=== PATIENT | male | born 1965 | race Caucasian/White ===

== ENCOUNTER 2016-08-15 14:08 | Inpatient (IN) | payer MEDICARE, OTHER ==
--- NOTE | ~2016-08-15 | HP ---
Unit #: [id number] #: [id number] Patient: SHEILA KWOK [id number] [address] [address] [id number] I MR#: [id number] NAME: SHEILA KWOK ROOM: 560 Age: 51 Sex: M Admission Date: 08/15/2016 : 1965 Attending Physician: Jeff Reynoso M.D. Primary Care Physician: Kevin Barrett M.D. HISTORY AND PHYSICAL CHIEF COMPLAINT Nausea. HISTORY OF PRESENT ILLNESS The patient is a 51-year-old male who presented to [facility] emergency department at the behest of his primary care provider secondary to a presumed pneumonia. The patient states that he has had about 4 days of progressive nausea and malaise. It culminated today in a temperature of 101. He has been increasingly drowsy and had difficulty staying awake. Denies any pain. Denies shortness of breath or chest pain. The patient denies diarrhea. He also states that he feels his symptoms began to ramp up after a recent left-sided tunneled cath replacement. PAST MEDICAL HISTORY 1. Coronary artery disease. 2. CVA. 3. Blindness. 4. Clotting disorder. 5. Diabetes. 6. Hypothyroidism. 7. Esophageal ulcers. 8. End-stage renal disease. 9. Bilateral qtsoq-nyz-whxn amputations. 10. Anxiety and depression. HOME MEDICATIONS 1. Hydroxyzine 50 mg p.o. q.6-8 h. 2. Metoprolol succinate 25 mg p.o. daily. 3. Neurontin 200 mg p.o. before dialysis. 4. Cymbalta 30 mg p.o. daily. 5. Paroxetine 40 mg p.o. daily. 6. Coumadin 5 mg p.o. daily. 7. Lipitor 80 mg p.o. daily. 8. Humalog 50/50 per sliding scale insulin. 9. Levemir 18 units b.i.d. 10. Synthroid 300 mcg daily. 11. Nitroglycerin as needed. 12. Timolol eye drops. 13. Xanax 1 mg p.o. daily as needed. 14. MVI daily. 15. Artificial Tears as needed. ALLERGIES Unit #: [id number] #: [id number] Patient: SHEILA KWOK. SOCIAL HISTORY There is no alcohol, tobacco or illicit drug use. Patient lives with family. FAMILY HISTORY Reviewed and noncontributory. REVIEW OF SYSTEMS A 10-point review of systems was obtained and negative except as per HPI. PHYSICAL EXAMINATION VITAL SIGNS: Temperature 101.0, pulse 108, blood pressure 104/35. GENERAL: This is a 51-year-old male in no acute distress who appears stated age. HEENT: Pupils equally round. Extraocular movements are intact. Mucous membranes are dry. NECK: Supple. No JVD, no lymphadenopathy. HEART: Regular rate and rhythm. 3/6 systolic ejection murmur. No gallops or rubs. LUNGS: Clear to auscultation bilaterally. ABDOMEN: Nontender, nondistended. Positive bowel sounds. EXTREMITIES: Bilateral BKA. No upper extremity swelling, cyanosis, or clubbing. PSYCHIATRIC: Alert and oriented x3. Affect is appropriate. NEUROLOGIC: Cranial nerves II-XII are intact grossly. The patient moves bilateral upper extremities equally and with purpose. SKIN: No rashes, bruises, or ulcers. MUSCULOSKELETAL: No muscle or joint pain, no muscle or joint swelling. DIAGNOSTIC STUDIES LABORATORY: Glucose 252, creatinine 4.5, sodium 125, chloride 93, bicarb 20. Lactate is 2. Hemoglobin 10.5. IMAGING: Chest x-ray shows no acute abnormality. ASSESSMENT AND PLAN 1. Sepsis. At this point, concern for tunneled cath source. The patient has been started on vancomycin and Zosyn. 2. End-stage renal disease. Consult has been placed to the patient's director graphics. 3. Diabetes. The patient has been started on low-dose sliding scale insulin. 4. Hypothyroidism. Continue home medications. 5. Prophylaxis. The patient is started on Lovenox. Dictated by Jeff Reynoso M.D. RACHEL/jhonny Unit #: [id number] #: [id number] Patient: SHEILA KWOK TD: 08/15/2016 21:15 JOB #: [id number] HISTORY AND PHYSICAL Page 1 of 1 X Jeff Reynoso MD X HISTORY AND PHYSICAL
--- NOTE | ~2016-08-15 | CR72 ---
[facility] A Service of [facility] & [facility] RADIOLOGY TEXT RESULTS PATIENT: SHEILA KWOK LOCATION: B 560-01 : [birth year] UNIT #: [id number] AGE: [address]: Edita Stroud MD SEX: M ORDER DR: [id number] [facility] [address] [facility]. [place], [place] [address] [id number] I MR#: [id number] Acc #: [id number] NAME: SHEILA KWOK : 1965 SEX: M STUDY DATE/TIME: 08/15/2016 14:45 UNIT: [facility] ROOM: [facility] STUDY DESCRIPTION: CR Chest Single View Portable Attending Physician: Jeff Reynoso M.D. Ordering Physician: Jorge Luis Ventura M.D. Primary Care Physician: Kevin Barrett M.D. MEDICAL IMAGING REPORT This report is preliminary unless electronic signature is present EXAM Single view of the chest dated 08/15/2016. COMPARISON Chest, 2 views dated 08/15/2016. HISTORY Cough, fever, shortness of air for one day. FINDINGS Single view of the chest was obtained. Left IJ approach dual-lumen catheter is noted with the tip in the region of the SVC. Vascular stents are noted in the region of the right subclavian, axillary vessels. Correlate with the history. No acute cardiopulmonary disease. Lungs are well-aerated. Heart and mediastinum are of stable size. There is mild prominence of the superior mediastinum in the right paraspinal region, but it is stable when compared to the prior CT chest from 08/15/2016, with a prominent right azygous vein is noted extending from anterior to posterior aspect crossing the prominence. IMPRESSION 1. No acute cardiopulmonary disease. 2. Left IJ approach dual-lumen catheter tip is in the region of the SVC. 3. Vascular stents are noted in the region of the right subclavian and right axillary veins. Dictated by... Edward Wesley M.D. THIS IS AN ELECTRONICALLY VERIFIED REPORT [facility] A Service of [facility] RADIOLOGY TEXT RESULTS PATIENT: SHEILA KWOK LOCATION: C5B 560-01 : [birth year] UNIT #: [id number] AGE: [address]: Edita Stroud MD SEX: M ORDER DR: Edward Wesley M.D. at 08/16/2016 11:44 AM CPR/jt TD: 08/15/2016 20:16 JOB #: [id number] MEDICAL IMAGING REPORT Page 1 of 1 COPY
--- NOTE | ~2016-08-15 | EKG ---
PATIENT: SHEILA KWOK UNIT #: [id number] Ventricular Rate: 102 BPM Atrial Rate: 102 BPM P-R Interval: 174 ms QRS Duration: 66 ms Q-T Interval: 346 ms QTC Calculation(Bezet): 450 ms P [place]: 52 degrees Calculated R [place]: -4 degrees Calculated T [place]: 82 degrees Diagnosis Line: Sinus tachycardia Diagnosis Line: Low voltage QRS Diagnosis Line: Cannot rule out Anteroseptal infarct , age Diagnosis Line: undetermined Diagnosis Line: Abnormal ECG Diagnosis Line: No previous ECGs available Diagnosis Line: Confirmed by EDILMA MIR MD ([id number]) on 08/15/2016 Diagnosis Line: 8:42:58 PM INTERPRETING MD: ADEOLA COBOS
--- NOTE | ~2016-08-15 | DS ---
Unit #: [id number] #: [id number] Patient: SHEILA KWOK [id number] [address] [place], [place] [address] [id number] I MR#: [id number] NAME: SHEILA KWOK ROOM: 560 Age: 51 Sex: M Admission Date: 08/15/2016 : 1965 Discharge Date: 08/20/2016 Attending Physician: Jeff Reynoso M.D. Primary Care Physician: Kevin Barrett M.D. DISCHARGE SUMMARY DISCHARGE DIAGNOSES 1. Line sepsis. 2. End stage renal disease. 3. Hypotension. 4. Coronary artery disease. 5. Moderate pulmonary hypertension. HOSPITAL COURSE Patient is a 51-year-old male admitted to [facility] on 08/15/16 secondary to sepsis. The patient had initially presented from his primary care provider's office secondary to some concern for pneumonia and sepsis. However, the patient's chest x-ray proved normal in the ED and interview of the family revealed that symptoms seemed to have begun shortly after replacement of the left-sided tunneled cath. Patient was started on Zosyn and vancomycin. Started on sepsis protocol and patient's lactic acid was noted to be 1. The patient's blood pressures were all initially well within normal ranges; however, the patient did become hypotensive with a blood pressure of 87/42 on August 18. This was noted to be associated with dialysis and felt not to be secondary to the patient's infection. Patient was started briefly on dopamine, which has now been weaned off. The source of the sepsis at this time is felt to be secondary to his line. The patient had 2 of 2 blood cultures from March 17 that grew coagulase negative staph. Patient's Zosyn was discontinued and he has continued on vancomycin dosed after dialysis. The plan for infectious disease is to continue dosing the vancomycin through the tunneled catheter until 08/30/16 in hopes of sterilizing the catheter and rendering it viable for continued use. At this time, patient's dopamine has been discontinued. His blood pressures are appropriate. Patient is being discharged home to continue IV antibiotics and dialysis per his normal schedule. DISCHARGE MEDICATIONS 1. Coumadin 5 mg daily. 2. Neurontin 200 mg p.o. daily. 3. Cymbalta 30 mg daily. 4. Paxil 40 mg daily. 5. Lipitor 80 mg daily. 6. Hydroxyzine 50 mg p.o. q.6-8 hours as needed for itching. 7. Xanax 1 mg p.o. daily p.r.n. anxiety. 8. Metoprolol succinate 25 mg p.o. daily. Unit #: [id number] #: [id number] Patient: SHEILA KWOK 9. Timoptic eyedrops 1 drop each eye twice a day. 10. Humalog 50/50 per sliding scale. 11. Levemir 18 units subcu. b.i.d. 12. Synthroid 300 mcg daily. 13. Rectiv 0.5 inch applied topically as needed q.8 hours. 14. Virt-Caps softgel one daily. 15. Vancomycin with dialysis until 08/30. FOLLOWUP As mentioned above, the patient should follow up with his regularly scheduled dialysis. He should see his primary care provider within one week. Dictated by... Jeff Reynoso M.D. RACHEL/shannon TD: 08/21/2016 10:09 JOB #: [id number] DISCHARGE SUMMARY Page 1 of 1 X Jeff Reynoso MD X DISCHARGE SUMMARY
--- NOTE | ~2016-08-15 | CO ---
Unit #: [id number] #: [id number] Patient: SHEILA KWOK [id number] [address] [address] [id number] I MR#: [id number] NAME: SHEILA KWOK ROOM: 560 Age: 51 Sex: M Admission Date: 08/15/2016 : 1965 Attending Physician: Edita Stroud M.D. Primary Care Physician: Kevin Barrett M.D. Consultation Date: 08/17/2016 CONSULTATION REPORT REASON FOR CONSULTATION Positive blood cultures and bacteremia. HISTORY OF PRESENT ILLNESS This is a 51-year-old male who is somewhat a poor historian. The patient is alone in the room, without family at the bedside. Chart has also been reviewed. The patient has a history of chronic kidney disease on dialysis for several years and has had multiple dialysis access placements in the past that have failed secondary to a clotting disorder and not infection. The patient reports that within the last two weeks he had a new tunnelled line placed in his left chest and the past this happened in his arms and in his legs. The patient reports at home he was having fever and also it appears per the history and physical that he was having some nausea and malaise. The patient also with a fever spike of 101 was brought to the emergency room per the advisement of his primary care provider. The patient in the emergency room and to myself denied shortness of breath, nausea, vomiting and diarrhea and reports overall feeling better since admission. Workup showed fever of 101 degrees Fahrenheit as well as two positive blood cultures for Gram positive cocci, one of which has speciated to coag negative staphylococcus. The patient was given vancomycin and Zosyn and infectious disease was asked to evaluate for further management. PAST MEDICAL HISTORY 1. Coronary artery disease. 2. CVA 3. Blindness. 4. Clotting disorder 5. Diabetes. 6. Hypothyroidism. 7. Esophageal ulcers. 8. Endstage renal disease. 9. Bilateral wxzsx-qty-htoz amputations. 10. Anxiety. 11. Depression. SOCIAL HISTORY No alcohol, tobacco or drug use. He lives with others [facility]. CURRENT MEDICATIONS 1. Vancomycin. Unit #: [id number] #: [id number] Patient: SHEILA KWOK 2. Zosyn. For further medications please refer to the patient's MAR. REVIEW OF SYSTEMS The patient denies any current fever, chills or sweats. He reports feeling better. He denies any shortness of breath, chest pain, cough, nausea, vomiting, diarrhea, nonhealing wounds or pain at his tunnelled site. PHYSICAL EXAMINATION GENERAL: This is a no apparent distress male who is resting in the bed comfortably. VITALS: Temperature 97.9 with a t-max of 101, pulse 74, blood pressure 96/40, respiratory rate 17. NECK: Supple. LUNGS: Clear to auscultation bilaterally with no wheezes or rhonchi noted. HEART: S1 and S2. Regular rate and rhythm. ABDOMEN: Positive bowel sounds. Soft and nontender. EXTREMITIES: Healed incisions on his bilateral ubgpu-voq-ylem amputations. He has a left chest tunnelled catheter in place without any evidence or drainage or erythema or tenderness. DIAGNOSTIC STUDIES IMAGING: On 08/15/2016, chest x-ray shows no acute cardiopulmonary disease. LABORATORY: BUN 28, creatinine 4.6, sodium 132, potassium 3.6, chloride 96, CO2 25, bilirubin 0.6, AST 24, ALT 25, alkaline phosphatase 168. Lactic acid 2.0 on admission and improved to 1.4. Procalcitonin 2.98. White blood cell count 5.4, hemoglobin 9.9, hematocrit 30.5, platelets 163. Microbiology, blood cultures 08/15/2016 show (1) with coag negative staph and one of two gram positive cocci. ASSESSMENT/PLAN This is a 51-year-old diabetic male with chronic kidney disease, with multiple dialysis accesses in the past secondary to failure from a clotting disorder. The patient recently within the last few weeks has had a tunnelled line placed in his left chest. The patient now presents with fever and malaise and was found to have gram positive cocci bacteremia, one of which is showing coag negative staphylococcus. At this time, due to the patient's vascular access difficulties, and potentially virulent bacteria, may be able to salvage the line. Would recommend at this time to continue to follow up on the final identification of all of the blood cultures. Will repeat blood cultures times two 30 minutes apart. Will discontinue Zosyn and continue pulse dosing vancomycin per the pharmacy. Will check a CBC in the a.m. The patient overall reports that he has been feeling better since hospitalization and we will continue to follow along. Thank you for allowing us to participate in the care of this patient. Further recommendations to follow pending the patient's clinical course. Dictated by... Camille Johnson A.P.R.N. for Jorge Piper M.D. Unit #: [id number] #: [id number] Patient: SHEILA KWOK SLS/gz TD: 08/17/2016 10:47 JOB #: [id number] CONSULTATION REPORT Page 1 of 1 X X CONSULTATION REPORT
--- NOTE | ~2016-08-15 | BMI ---
[facility] Nutrition Therapy DATE: 08/16/16 Patient: SHEILA KWOK Physician: LENNOX Address: [address] Room/Bed: [address] [place] [address], Zip: [place] [address] Admit Date: 08/15/16 Date of : [birth year] Height: 4 0 Weight: 193 87.54 HIGH BMI NOTE: DX: 51 y/o male admitted for fever, PNA? ANTHROPOMETRICS: ht: 4'0" wt: 192# (87 kg) BMI 58 DIET: 1. 2g Na+ INTERVENTION: 1. 2g Na+ diet RECOMMENDATIONS: 1. Recommend adding healthy heart to current 2g Na+ diet in order to promote gradual weight loss towards a healthy BMI. RD will f/u per protocol. Respectfully, GATO ALONZO, medical assistant internal medicine Srikanth Mills MS, RD, LD Food and Nutritional Services [facility] [place] [facility] cc: client file
--- NOTE | ~2016-08-15 | CO ---
Unit #: [id number] #: [id number] Patient: SHEILA KWOK [id number] [address] [address] [id number] I MR#: [id number] NAME: SHEILA KWOK ROOM: 560 Age: 51 Sex: M Admission Date: 08/15/2016 : 1965 Attending Physician: Edita Stroud M.D. Primary Care Physician: Kevin Barrett M.D. Consultation Date: 08/18/2016 CONSULTATION REPORT REASON FOR CONSULTATION Hypotension. HISTORY OF PRESENT ILLNESS The patient is a 51-year-old man known to Dr. Diaz. On October 23, 2011, patient underwent a cardiac catheterization. Patient underwent successful angioplasty with stent insertion to the mid left anterior descending 90-95% stenosis reduced to no residual stenosis with a 2.25 x 22 mm drug-eluting Resolute stent postdilated to 2.45 mm and proximal left anterior descending 70% stenosis reduced to no residual stenosis with a 2.5 x 14 mm Resolute stent postdilated to 2.71 mm. Previously in September 2011, patient underwent PCI and stent to the mid and proximal RCA. At that time, he had moderate disease in the circumflex, ramus, and ramus branches. In March 2015, patient was admitted to the hospital after a cardiac arrest during dialysis. At that time, patient and family declined to have a cardiac cath. His last echo that I can find is from 2013 which showed an EF of 55%, mild MR, and mild to moderate TR. Patient's additional past medical history includes hypertension, hyperlipidemia, diabetes with retinopathy and he is legally blind, peripheral vascular disease, status post bilateral BKAs, and failed kidney transplant x2. He does have end-stage renal disease and is on hemodialysis. In 2004, patient had a CVA or a TIA. 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 Additionally, he has rheumatoid arthritis, hypothyroidism, hypoparathyroidism, and is wheelchair bound. The patient reports that he recently had a left-sided tunneled catheter placed. The patient presented to the emergency department with complaints of fever, nausea, and malaise x4 days. He denies any chest pain. He does endorse a cough. There is no shortness of breath. Again, he states that he recently had a left-sided tunneled catheter placed. Patient reports that his temperature got as high as 100.1. Patient was admitted to the hospital for sepsis. On August 15, blood cultures x2 showed coagulase-negative staphylococcus bacteremia. Infectious Disease has consulted, and they are managing the patient's antibiotics. Cardiology was consulted for the hypotension. His telemetry shows sinus rhythm, and his blood pressures have been running 80s to 90s over 50s to 60s. At this point in time, he has received 2.5 liters of normal saline. PAST MEDICAL HISTORY 1. Catheterization in September 2011 with PCI and stent to the mid and proximal RCA and moderate disease in the circumflex, ramus, and ramus Unit #: [id number] #: [id number] Patient: SHEILA KWOK. 2. Catheterization in October 2011 with PCI and stent to the mid to proximal LAD. 3. Echocardiogram in 2013 with ejection fraction of 55%. 4. Hypertension. 5. Hyperlipidemia. 6. Cardiac arrest in March 2015 during hemodialysis. Cardiac catheterization was declined at that time. 7. Diabetes with retinopathy. 8. Legally blind. 9. Peripheral vascular disease, status post bilateral BKAs. 10. Failed kidney transplant x2. 11. Transient ischemic attack. 12. Cerebrovascular accident/TIA in 2004. 13. 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 14. Rheumatoid arthritis. 15. Hypothyroidism. 16. Hypoparathyroidism. 17. Recent left tunneled catheter placement. 18. Multiple AV shunts and fistulas. 19. Parathyroidectomy. 20. Cholecystectomy. 21. Cataract extraction. 22. Cystoscopy. ALLERGIES [place]. HOME MEDICATIONS 1. Hydroxyzine 50 mg p.o. q.6-8 hours p.r.n. 2. Metoprolol succinate 25 mg p.o. daily. 3. Neurontin 200 mg p.o. before dialysis. 4. Cymbalta 30 mg p.o. daily. 5. Paroxetine 40 mg p.o. daily. 6. Coumadin 5 mg p.o. daily. 7. Lipitor 80 mg p.o. daily. 8. Humalog 50/50 per sliding scale insulin. 9. Levemir 18 units subcutaneous b.i.d. 10. Synthroid 300 mcg p.o. daily. 11. Nitroglycerin 0.4 mg sublingual q.5 minutes x3 p.r.n. chest pain. 12. Timolol eyedrops. 13. Xanax 1 mg p.o. daily p.r.n. 14. Multivitamin 1 tab p.o. daily. 15. Artificial Tears. FAMILY HISTORY Negative for coronary artery disease. SOCIAL HISTORY Patient lives with his parents and a son. He is wheelchair bound. His parents and family do assist him with his care. He quit smoking in November 2013. He does have a remote history of marijuana use. He does endorse that he will occasionally have a beer. REVIEW OF SYSTEMS A 10-point review of systems has been done and is considered otherwise negative unless indicated in the History of Present Illness. Unit #: [id number] #: [id number] Patient: SHEILA KWOK PHYSICAL EXAMINATION GENERAL: Patient is awake, alert, and in no acute distress. CURRENT VITAL SIGNS: Temperature 97.9, heart rate 81, respirations 18, blood pressure 89/46, and he is oxygenating 97%. HEENT: Head is atraumatic and normocephalic. Pupils are equal, round, and reactive. Extraocular movements are intact. No drainage from ears or nares. NECK: Supple. Trachea is midline. No lymphadenopathy or thyromegaly is appreciated. Normal carotid upstrokes. CHEST: Lungs are diminished bilaterally. No wheezes, rales, or rhonchi. He does have a left upper chest tunneled catheter. CARDIOVASCULAR: S1 and S2, regular rate and rhythm. No murmurs, rubs, or gallops are appreciated. ABDOMEN: Soft, nontender, and nondistended. Bowel sounds are positive in all four quadrants. SKIN: Appears to be warm, dry, and intact. EXTREMITIES: No clubbing or cyanosis. Patient has bilateral jidjt-koo-hzns amputations. NEUROLOGIC: Patient is alert and oriented x3. He is pleasant and conversant. Cranial nerves II-XII appear to be intact. DIAGNOSTIC STUDIES LABORATORY: White blood cells 7.1, hemoglobin 10, hematocrit 31.2, and platelets 167,000. Sodium 130, potassium 4.3, chloride 97, CO2 of 22, glucose 40, BUN 42, and creatinine 5.2. CARDIOLOGY: Telemetry monitoring shows sinus rhythm in the 70s to 80s. ASSESSMENT 1. Sepsis. 2. Volume depletion. 3. Stable angina, status post percutaneous coronary intervention to the left anterior descending and right coronary artery. 4. Ejection fraction of 60%. 5. Mild to moderate pulmonary hypertension. 6. Left circumflex 95% (1) . 7. Chronic kidney disease, on hemodialysis. 8. Peripheral arterial disease, status post xxaqr-mkx-jthu amputation. 9. Hypotension. 10. Bacteremia. PLAN At this time, will check a BMP, magnesium, and EKG in the morning. The patient will be started on normal saline at 150 mL/hour x6 hours and will decrease down to 100 mL/hour. Dopamine at 5 mcg/kg/min will be started. Do not titrate. Dictated by... Maria De Jesus Reynoso A.P.R.N. for Garcia Ro M.D. AM/am TD: 08/18/2016 16:37 JOB #: [id number] Unit #: [id number] #: [id number] Patient: SHEILA KWOK CONSULTATION REPORT Page 1 of 1 X Maria De Jesus Reynoso APRN X CONSULTATION REPORT
--- NOTE | ~2016-08-15 | EKG ---
PATIENT: SHEILA KWOK UNIT #: [id number] Ventricular Rate: 87 BPM Atrial Rate: 87 BPM P-R Interval: 194 ms QRS Duration: 64 ms Q-T Interval: 370 ms QTC Calculation(Bezet): 445 ms P [place]: 51 degrees Calculated R [place]: 20 degrees Calculated T [place]: 59 degrees Diagnosis Line: Normal sinus rhythm Diagnosis Line: Low voltage QRS Diagnosis Line: Borderline ECG Diagnosis Line: When compared with ECG of 15-AUG-2016 14:35, Diagnosis Line: Minimal criteria for Anteroseptal infarct are no Diagnosis Line: longer Present Diagnosis Line: Confirmed by EDILMA MIR MD ([id number]) on 08/21/2016 Diagnosis Line: 2:54:21 PM INTERPRETING MD: ADEOLA COBOS
[~2016-08-15 14:08] MED LIST: ACETAMINOPHEN PO; ALPHAGAN P10 ML OP; ALPRAZOLAM PO; ALPRAZOLAM0.25 MG PO; AMBIEN PO; AMITRYPTYLINE PO; ANUSOL-HC SUPP25 M1 PR; ASPIRIN ENTERI325 M1 PO; ASPIRIN81 M1 PO; ASPIRIN81 M2 PO; ASPIRINEC PO; ATIVAN; ATIVAN PO; BACTROBAN22 GM TP; BAYER ASPIRIN325 M1 PO; BENADRYL PO; CHEWABLE ASPIRI81 MG PO; COLACE PO; COLACE50 MG PO; COUMADIN PO; COUMADIN2.5 MG PO; COUMADIN5 MG PO; COUMADIN7.5 MG PO; DARVOCET-N 1001 TAB PO; DOCU SOFT100 M1 PO; DOCUSATE SODIU100 MG PO; DORZOLAMIDE HCL10 M1 OU; EFFIENT10 MG PO; FERRO-TIME325 MG PO; FERROUS SULFATE PO; FLEXERIL10 MG PO; FLORINEF0.1 M1 PO; GABAPENTIN300 M2 PO; GABAPENTIN300 MG PO; HEPARIN INJ; HI CAL PO; HUMALOG100 U/ML; HUMALOG100 U/ML SUBQ; HUMULIN R100 U/ML; HYDROCODON-ACE1 EAC5 PO; IRON325 ( 65 ) PO; KLONOPIN PO; LEVEMIR SQ; LEVEMIR SUBQ; LEVEMIR100 U/ML SUBQ; LEVEMIR100 UNITS/ SUBQ; LEVOTHYROXINE175 MCG PO; LEVOXYL175 MC1 PO; LIPITOR PO; LIPITOR20 MG PO; LOPRESSOR PO; LORAZEPAM1 MG PO; METHADONE HCL10 MG PO; METOPROLOL TAR25 MG PO; MIRAPEX PO; MIRAPEX0.25 MG PO; NEPHROCAPS CAPSU1 MG PO; NEURONTIN100 MG PO; NEURONTIN300 MG PO; NEXIUM PO; NEXIUM20 MG PO; NITROGLYCERIN0.4 MG SL; NITROGLYGERIN0.4 MG SL; NITROSTAT0.4 MG SL; NOVOLOG100 U/ML SUBQ; NOVOLOG100 UNITS/ SUBQ; OMEPRAZOLE40 MG PO; OMNICEF300 M1 PO; PAROXETINE HCL40 M1 PO; PAROXETINE HCL40 MG PO; PAXIL PO; PAXIL40 MG PO; PLAVIX PO; PROCRIT4000 U/ML IJ; PROTONIX PO; REGLAN PO; RENAL SOFTGEL1 MG PO; RENAL TAB PO; SIMVASTATIN10 MG PO; SIMVASTATIN40 MG PO; SYNTHROID PO; SYNTHROID0.15 MG PO; SYNTHROID175 MCG PO; TIMOPTIC 0.5% OP5 M2 OU; TIMOPTIC2.5 ML OP; TIMOPTIC2.5 ML OU; TRUSOPT5 ML OP; TRUSOPT5 ML OU; TUMS500 MG PO; WARFARIN SODIU2.5 M1 PO; ZITHROMAX PO; ZOLPIDEM TARTRAT5 MG PO
[2016-08-15 14:41] LABS: BASOPHIL% 0.5 % (0-2.5); EOSINOPHIL% 0.5 % (0.0-7.0); HEMATOCRIT 32.4 % (38.0-50.0); HEMOGLOBIN 10.5 gm/dL (13.0-16.0); LYMPHOCYTE# 0.4 X10e3 (1.0-3.5); LYMPHOCYTE% 5.1 % (17.0-45.0); MEAN CELL VOLUME 95.9 FL (83-96); MEAN CORPUSCULAR HGB CONC 32.3 g/dL (30-36); MEAN PLATELET VOLUME 7.6 FL (6.5-11.5); MONOCYTE# 0.4 X10e3 (0-1.0); MONOCYTE% 5.9 % (3.0-12.0); NEUTROPHIL# 6.6 X10e3 (1.5-7.1); PLATELET COUNT 193 X10e3 (140-420); RED BLOOD COUNT 3.37 X10e (3.90-5.60); RED CELL DISTRIBUTION WIDTH 16.8 % (11.0-15.5); WHITE BLOOD COUNT 7.5 X10e3 (4.0-10.5)
[2016-08-15] MEDS ORDERED: PATIENT'S PHARMACY (14:48)
[2016-08-15] MEDS ORDERED: ARTIFICIAL TEAR15 M9 OU (14:49)
[2016-08-15] MEDS ORDERED: RECTIV30 GM PR (14:50)
[2016-08-15] MEDS ORDERED: VIRT-CAPS SOFTGE1 MG PO (14:50)
[2016-08-15] MEDS ORDERED: XANAX1 MG PO (14:50)
[2016-08-15] MEDS ORDERED: TIMOPTIC 0.5% OP5 M1 OU (14:50)
[2016-08-15] MEDS ORDERED: SYNTHROID300 MCG PO (14:51)
[2016-08-15] MEDS ORDERED: LIPITOR80 MG PO (14:52)
[2016-08-15] MEDS ORDERED: HUMALOG MI100 UNIT/6 (14:52)
[2016-08-15] MEDS ORDERED: LEVEMIR SUBQ (14:52)
[2016-08-15] MEDS ORDERED: COUMADIN5 MG PO (14:52)
[2016-08-15] MEDS ORDERED: CYMBALTA30 M1 PO (14:53)
[2016-08-15] MEDS ORDERED: NEURONTIN100 MG PO (14:53)
[2016-08-15] MEDS ORDERED: METOPROLOL SUCC25 MG PO (14:53)
[2016-08-15] MEDS ORDERED: PAROXETINE HCL40 M1 PO (14:53)
[2016-08-15 14:54] LABS: DIFF IND NO
[2016-08-15] MEDS ORDERED: HYDROXYZINE HCL50 MG PO (14:54)
[2016-08-15 14:56] LABS: INR 2.5; PARTIAL THROMBOPLASTIN TIME 48.3 SECONDS (23.5-31.3); PROTHROMBIN TIME (PATIENT) 27.7 SECONDS (10.0-11.7)
[2016-08-15 15:06] LABS: ALBUMIN SERUM 3.1 g/dL (3.5-5.0); BILIRUBIN, DIRECT 0.1 mg/dL (0.0-0.2); BILIRUBIN,INDIRECT 0.6 mg/dL (0.0-0.9); BILIRUBIN,TOTAL 0.7 mg/dL (0.2-2.0); BUN/CREATININE RATIO 7.33; CALCIUM SERUM 8.2 mg/dL (8.4-10.2); CREATININE SERUM 4.5 mg/dL (0.6-1.4); GLOM FILT RATE Estimated 13.9 mL/min (>60); POTASSIUM 3.7 mmol/L (3.5-5.1); PROTEIN TOTAL SERUM 7.4 g/dL (6.0-8.3)
[2016-08-15 16:58] LABS: POC - CKMB <1.0 ng/mL (0.0-7.9); POC - TROPONIN <0.05 ng/mL (<=0.05)
[2016-08-16 10:39] LABS: HEMATOCRIT 30.2 % (38.0-50.0); HEMOGLOBIN 9.8 gm/dL (13.0-16.0); MEAN CELL VOLUME 95.8 FL (83-96); MEAN CORPUSCULAR HEMOGLOBIN 31.2 PG (28-34); MEAN CORPUSCULAR HGB CONC 32.5 g/dL (30-36); MEAN PLATELET VOLUME 7.9 FL (6.5-11.5); RED BLOOD COUNT 3.15 X10e (3.90-5.60); RED CELL DISTRIBUTION WIDTH 17.1 % (11.0-15.5); WHITE BLOOD COUNT 6.5 X10e3 (4.0-10.5)
[2016-08-16 11:21] LABS: ALBUMIN SERUM 2.8 g/dL (3.5-5.0); BILIRUBIN,TOTAL 0.6 mg/dL (0.2-2.0); BUN/CREATININE RATIO 7.37; CALCIUM SERUM 8.1 mg/dL (8.4-10.2); CREATININE SERUM 6.1 mg/dL (0.6-1.4); GLOM FILT RATE Estimated 9.6 mL/min (>60); POTASSIUM 4.3 mmol/L (3.5-5.1); PROTEIN TOTAL SERUM 7.2 g/dL (6.0-8.3)
[2016-08-17 06:46] LABS: HEMATOCRIT 30.5 % (38.0-50.0); HEMOGLOBIN 9.9 gm/dL (13.0-16.0); MEAN CELL VOLUME 95.6 FL (83-96); MEAN CORPUSCULAR HEMOGLOBIN 31.1 PG (28-34); MEAN CORPUSCULAR HGB CONC 32.6 g/dL (30-36); MEAN PLATELET VOLUME 8.1 FL (6.5-11.5); RED BLOOD COUNT 3.19 X10e (3.90-5.60); WHITE BLOOD COUNT 5.4 X10e3 (4.0-10.5)
[2016-08-17 07:04] LABS: BUN/CREATININE RATIO 6.08; CALCIUM SERUM 7.8 mg/dL (8.4-10.2); CREATININE SERUM 4.6 mg/dL (0.6-1.4); GLOM FILT RATE Estimated 13.5 mL/min (>60); POTASSIUM 3.6 mmol/L (3.5-5.1)
[2016-08-18 06:42] LABS: HEMATOCRIT 31.2 % (38.0-50.0); MEAN CELL VOLUME 96.3 FL (83-96); MEAN CORPUSCULAR HEMOGLOBIN 30.8 PG (28-34); MEAN PLATELET VOLUME 8.4 FL (6.5-11.5); RED BLOOD COUNT 3.24 X10e (3.90-5.60); RED CELL DISTRIBUTION WIDTH 17.9 % (11.0-15.5); WHITE BLOOD COUNT 7.1 X10e3 (4.0-10.5)
[2016-08-18 07:05] LABS: BUN/CREATININE RATIO 8.07; CALCIUM SERUM 7.4 mg/dL (8.4-10.2); CREATININE SERUM 5.2 mg/dL (0.6-1.4); GLOM FILT RATE Estimated 11.7 mL/min (>60); POTASSIUM 4.3 mmol/L (3.5-5.1)
[2016-08-19 07:34] LABS: HEMATOCRIT 31.5 % (38.0-50.0); HEMOGLOBIN 10.2 gm/dL (13.0-16.0); MEAN CELL VOLUME 95.3 FL (83-96); MEAN CORPUSCULAR HEMOGLOBIN 30.8 PG (28-34); MEAN CORPUSCULAR HGB CONC 32.3 g/dL (30-36); MEAN PLATELET VOLUME 7.8 FL (6.5-11.5); RED BLOOD COUNT 3.3 X10e (3.90-5.60); RED CELL DISTRIBUTION WIDTH 17.7 % (11.0-15.5); WHITE BLOOD COUNT 7.8 X10e3 (4.0-10.5)
[2016-08-19 07:56] LABS: BUN/CREATININE RATIO 7.93; CALCIUM SERUM 7.7 mg/dL (8.4-10.2); CREATININE SERUM 6.3 mg/dL (0.6-1.4); GLOM FILT RATE Estimated 9.2 mL/min (>60); MAGNESIUM 2.1 mg/dL (1.6-3.0); POTASSIUM 4.7 mmol/L (3.5-5.1)
[2016-08-20 05:45] LABS: HEMATOCRIT 32.7 % (38.0-50.0); HEMOGLOBIN 10.7 gm/dL (13.0-16.0); MEAN CELL VOLUME 94.1 FL (83-96); MEAN CORPUSCULAR HEMOGLOBIN 30.7 PG (28-34); MEAN CORPUSCULAR HGB CONC 32.6 g/dL (30-36); MEAN PLATELET VOLUME 7.2 FL (6.5-11.5); RED BLOOD COUNT 3.48 X10e (3.90-5.60); RED CELL DISTRIBUTION WIDTH 17.3 % (11.0-15.5); WHITE BLOOD COUNT 5.7 X10e3 (4.0-10.5)
[2016-08-20 07:22] LABS: BUN/CREATININE RATIO 5.81; CALCIUM SERUM 7.7 mg/dL (8.4-10.2); GLOM FILT RATE Estimated 14.7 mL/min (>60); POTASSIUM 3.7 mmol/L (3.5-5.1)
[2016-08-20 07:23] LABS: CREATININE SERUM 4.3 mg/dL (0.6-1.4)
[2016-08-20] MEDS ORDERED: VANCOMYCIN1 GM/1001 (17:21)
[2016-10-23] MEDS ORDERED: COUMADIN PO (12:28)
[2016-10-23] MEDS ORDERED: XANAX1 MG PO (12:29)
[2016-10-23] MEDS ORDERED: LEVOTHYROXINE PO (12:29)
[2016-10-23] MEDS ORDERED: HUMALOG KW100 UNIT/1 (12:29)
[2016-10-23] MEDS ORDERED: PAXIL PO (12:29)
[2016-10-23] MEDS ORDERED: CYMBALTA30 M1 PO (12:29)
[2016-10-23] MEDS ORDERED: VIRT-CAPS SOFTGE1 MG PO (12:30)
[2016-11-08] MEDS ORDERED: WARFARIN SODIUM2 M1 PO (14:16)
[2016-11-08] MEDS ORDERED: LEVEMIR FL100 UNIT/1 SUBQ (14:18)
[2016-11-11] MEDS ORDERED: ALPRAZOLAM0.25 MG PO (15:21)
[2016-11-11] MEDS ORDERED: NEPHROCAPS QT1 EACH PO (15:22)
[2016-11-11] MEDS ORDERED: METOPROLOL SUCC25 MG PO (15:22)
[2016-11-11] MEDS ORDERED: LIPITOR PO (15:22)
[2016-11-11] MEDS ORDERED: CYMBALTA30 M1 PO (15:23)
[2016-11-11] MEDS ORDERED: COUMADIN PO (15:23)
[2016-11-11] MEDS ORDERED: NOVOLOG100 UNITS/ SUBQ (15:23)
[2016-11-11] MEDS ORDERED: NEURONTIN100 MG PO (15:23)
[2016-11-11] MEDS ORDERED: LEVEMIR SUBQ (15:24)
[2016-11-11] MEDS ORDERED: TIMOPTIC5 ML OU (15:24)
[2016-11-11] MEDS ORDERED: SYNTHROID300 MCG PO (15:24)
[2016-11-11] MEDS ORDERED: PAXIL PO (15:24)
[2016-11-11] MEDS ORDERED: HYDROXYZINE HCL50 MG PO (15:24)
[2016-11-11] MEDS ORDERED: TUMS200 MG PO (15:25)
== END 2016-08-20 18:49 | disposition home or self-care (01) | DRG 314 ==
LOC: CED 14:08 → CEDOF 16:47 → CED 17:25 → CEDOF 19:20 → C5B 19:20
PROVIDERS: Emergency Medicine; Family Medicine; Internal Medicine; Internal Medicine Nephrology
PROC: B246YZZ Ultrasonography of Right and Left Heart using Other Contrast (ICD-10-PCS; principal; 2016-08-15)
PROC: 5A1D60Z (ICD-10-PCS; 2016-08-16)
DX: T80.219A Unspecified infection due to central venous catheter, initial encounter (principal); A41.9 Sepsis, unspecified organism; T86.12 Kidney transplant failure; I95.89 Other hypotension; I12.0 Hypertensive chronic kidney disease with stage 5 chronic kidney disease or end stage renal disease; N18.6 End stage renal disease; I27.2 Other secondary pulmonary hypertension; E11.22 Type 2 diabetes mellitus with diabetic chronic kidney disease; Z99.2 Dependence on renal dialysis; E11.319 Type 2 diabetes mellitus with unspecified diabetic retinopathy without macular edema; E11.51 Type 2 diabetes mellitus with diabetic peripheral angiopathy without gangrene; E03.9 Hypothyroidism, unspecified; Z89.512 Acquired absence of left leg below knee; Z89.511 Acquired absence of right leg below knee; Z99.3 Dependence on wheelchair; F41.9 Anxiety disorder, unspecified; F32.9 Major depressive disorder, single episode, unspecified; E78.5 Hyperlipidemia, unspecified; H54.8 Legal blindness, as defined in USA; M06.9 Rheumatoid arthritis, unspecified; Z98.42 Cataract extraction status, left eye; Z98.41 Cataract extraction status, right eye; Z79.01 Long term (current) use of anticoagulants; Z87.891 Personal history of nicotine dependence; Z79.4 Long term (current) use of insulin
CPT/HCPCS: 36415; 71010; 80048; 80053; 80076; 80202; 82308; 82553; 82947; 83036; 83605; 83735; 84484; 85025; 85027; 85610; 85730; 87040; 87077; 87186; 93005; 93306; 94760; 99285; J1265; J1644; J1815; J2543; J3370